=== PATIENT | male | born 1960 | race Caucasian/White ===

== ENCOUNTER 2017-12-27 08:19 | Observation (INO) | payer MEDICARE, OTHER ==
[2017-12-27 08:28] VITALS: BMI 40.3
[2017-12-27] MEDS ORDERED: Albuterol 0.083% Inhal Sol (2.5 mg/3 mL) UD INH STA (09:17)
[2017-12-27] MEDS ORDERED: Albuterol 0.083% Inhal Sol (2.5 mg/3 mL) UD ONE (09:17)
[2017-12-27 09:48] LABS: BASO % 0.5 % (0.0-2.0); EOS # 0.2 K/uL (0.0-0.7); EOS % 3.1 % (0.0-4.0); HEMOGLOBIN 12.6 g/dL (12.0-18.0); LYMPH # 1.6 K/uL (1.0-4.3); LYMPH % 21.4 % (20.0-40.0); MEAN CORPUSCULAR HEMOGLOBIN 27.5 pg (27.0-31.0); MEAN CORPUSCULAR HGB CONC 33.1 g/dL (33.0-37.0); MEAN PLATELET VOLUME 8.9 fL (7.2-11.7); MONO # 0.7 K/uL (0.0-0.8); MONO % 9.1 % (0.0-10.0); NEUT # 4.9 K/uL (1.8-7.0); NEUT % 65.9 % (50.0-75.0); RBC 4.6 Mil/uL (4.40-5.90); RED CELL DISTRIBUTION WIDTH 15.1 % (11.5-14.5); WHITE BLOOD COUNT 7.4 K/uL (4.8-10.8)
[2017-12-27 10:01] LABS: ALB/GLOB RATIO 1.4 (1.0-2.1); ALBUMIN 3.8 g/dL (3.5-5.0); ALT/SGPT 28 U/L (21-72); AST/SGOT 12 U/L (17-59); BLOOD UREA NITROGEN 17 mg/dL (9-20); CALCIUM 8.9 mg/dl (8.6-10.4); GFR AFRICAN-AMERICAN > 60; GFR NON-AFRICAN AMERICAN > 60
[2017-12-27 10:12] LABS: B-TYPE NATRIURETIC PEPTIDE 140 pg/mL (0-900)
--- NOTE | 2017-12-27 10:23 | RAD ---
Date of service: 12/27/2017 HISTORY: SOB COMPARISON: No prior. TECHNIQUE: Chest PA and lateral FINDINGS: LUNGS: Pulmonary vascular congestion. Left midlung and bibasilar atelectasis. PLEURA: No significant pleural effusion identified. No pneumothorax apparent. CARDIOVASCULAR: Atherosclerotic aortic calcifications. Cardiomediastinal silhouette at the upper limits of normal in size. OSSEOUS STRUCTURES: Degenerative changes. VISUALIZED UPPER ABDOMEN: Normal. OTHER FINDINGS: None. IMPRESSION: No active disease.
--- NOTE | 2017-12-27 11:41 | C.PDOC ---
History Of Present Illness 57 year old male with PMHx of COPD, CHF, questionable DM and HTN presents to the ED for evaluation of progressively worsening SOB with exertion, supine position. Patient reports he needs more pillow to sleep on at night and has also noticed increased bilateral leg swelling. Patient denies fever, chills, CP , palpitations, nausea, vomit, diarrhea, weakness, numbness. Time Seen by Provider: 12/27/17 08:42 Chief Complaint (Nursing): Shortness Of Breath History Per: Patient History/Exam Limitations: no limitations Onset/Duration Of Symptoms: Days Current Symptoms Are (Timing): Still Present Initiating Event: Upper Respiratory Illness Quality: Pressure Exacerbating Factor(s): Exertion, Laying Flat Current Respiratory Medications: See Home Med List Associated Symptoms: Ankle/Leg Swelling Recent travel outside of the [place]: No Additional History Per: Patient Past Medical History Reviewed: Historical Data, Nursing Documentation, Vital Signs Vital Signs: Last Vital Signs Temp 97.8 F 12/27/17 15:55 Pulse 70 12/27/17 17:11 Resp 20 12/27/17 15:55 BP 158/97 H 12/27/17 17:11 Pulse Ox 96 12/27/17 15:55 - Medical History PMH: Asthma, CHF, COPD, Diabetes, HTN, Hyperlipidemia Surgical History: Appendectomy Family History: States: Unknown Family Hx - Social History Hx Alcohol Use: Yes Hx Substance Use: No Review Of Systems Constitutional: Negative for: Fever, Chills Cardiovascular: Negative for: Chest Pain, Palpitations Respiratory: Positive for: Shortness of Breath. Negative for: Cough Gastrointestinal: Negative for: Nausea, Vomiting Musculoskeletal: Positive for: Other (leg swelling) Skin: Negative for: Rash Neurological: Negative for: Weakness, Numbness Physical Exam - Physical Exam Appears: Non-toxic, No Acute Distress, Other (obese male) Skin: Normal Color, Warm, Dry Head: Atraumatic, Normacephalic Eye(s): bilateral: Normal Inspection Oral Mucosa: Moist Neck: Normal ROM, Supple Chest: Symmetrical Cardiovascular: Rhythm Regular Respiratory: No Rales, No Rhonchi, Wheezing (scattered expiratory ), Other ( bibasilar crackles) Gastrointestinal/Abdominal: Soft, No Tenderness, No Guarding, No Rebound, Other (obese) Extremity: Normal ROM, No Tenderness, Capillary Refill (< 2 seconds), Swelling ( 2+ b/l pitting edema) Pulses: Left Dorsalis Pedis: Normal, Right Dorsalis Pedis: Normal Neurological/Psych: Oriented x3, Normal Speech, Normal Cognition Gait: Steady ED Course And Treatment - Laboratory Results Result Diagrams: 12/27/17 09:43 12/27/17 09:43 ECG: Interpreted By Me, Viewed By Me ECG Rhythm: Sinus Rhythm Interpretation Of ECG: Possible left atrial enlargement Rate From EC (BPM) O2 Sat by Pulse Oximetry: 98 (ON RA) Pulse Ox Interpretation: Normal Medical Decision Making Medical Decision Making: Impression: worsening SOB Plan: * EKG * Labs * CXR * Albuterol 2.5 mg INH * Bumex 0.5 mg IVP * UA Discussed patient with Dr. 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 - Scribe Statement The provider has reviewed the documentation as recorded by the Scribe Philip Mason All medical record entries made by the Scribradha were at my direction and personally dictated by me. I have reviewed the chart and agree that the record accurately reflects my personal performance of the history, physical exam, medical decision making, and the department course for this patient. I have also personally directed, reviewed, and agree with the discharge instructions and disposition.
[2017-12-27 11:49] LABS: URINE BILIRUBIN NEGATIVE (NEGATIVE); URINE BLOOD NEGATIVE (NEGATIVE); URINE CLARITY Clear (Clear); URINE COLOR Yellow (YELLOW); URINE GLUCOSE (UA) 1+ mg/dL (Normal); URINE LEUKOCYTE ESTERASE NEG Leu/uL (Negative); URINE PROTEIN NEGATIVE (NEGATIVE); URINE UROBILINOGEN NORMAL mg/dL (0.2-1.0)
[2017-12-27 12:19] VITALS: RESP 20
--- NOTE | 2017-12-27 14:05 | CP.PCM.PN ---
Subjective - Date & Time of Evaluation Date of Evaluation: 12/27/17 Time of Evaluation: 13:59 - Subjective Subjective: PGY2 progress note for Dr Pat's Service Pt seen and examined at bedside. Patient found resting comfortably and speaking in full sentences. Patient states he feels less short of breath since receiving Bumex in the ED. He denies chest pain, palpitations, abd pain, N/V/D/C. Patient is a 57 year old male, with PMHx of COPD, CHF (unknown type), IGT, and HTN, presenting to [facility] ED for dyspnea. Patient reports over the last week his leg swelling has increased, and has become associated with dyspnea with exertion. Patient admits it has become impossible for him to lay flat, and now requires two pillows. Pt also admits it is difficult to walk more than a few steps before becoming SOB. Admits "70lb weight gain" over past six months. Admits he "does not watch diet/fluid intake." Patient reports seeing Dr. Wynn (Field Recorder) in [place]. Used to see Dr. Cobian but has not in several years. Admits last ECHO was two years ago. Patient states he is aware of "high sugars" but denies diagnosis with diabetes. PMHx: as above PSHx: Appendectomy SHx: Smoked 1/2 ppd x 20+ years; Quit 5 years ago; Denies alcohol or illicit drugs; Lives in [place]; Retired Allergies: Lasix (renal colic after Lasix- no rash, anaphylaxis), Penicillin, Epinephrine Fam Hx: Father - heart disease; mother - COPD Home Meds: Lisinopril 20mg PO Daily Coreg 6.25mg PO (Pt states he takes daily) Metformin 500mg PO Daily Advair Spiriva Simvastatin 10mg PO HS Objective - Vital Signs/Intake and Output Vital Signs (last 24 hours): Temp Pulse Resp BP Pulse Ox 99.0 F 70 20 146/90 98 12/27/17 08:28 12/27/17 12:18 12/27/17 12:18 12/27/17 12:18 12/27/17 13:13 - Labs Labs: 12/27/17 09:43 12/27/17 09:43 - Constitutional Appears: Non-toxic, No Acute Distress - Head Exam Head Exam: ATRAUMATIC, NORMAL INSPECTION - Eye Exam Eye Exam: EOMI. absent: Scleral icterus Pupil Exam: PERRL - ENT Exam ENT Exam: Mucous Membranes Moist - Neck Exam Neck Exam: Full ROM Additional comments: JVD difficult to appreciate given pts large body habitus - Respiratory Exam Respiratory Exam: Rales (crackles through mid, lower lungs), Wheezes (mid and lower lungs), NORMAL BREATHING PATTERN. absent: Accessory Muscle Use, Clear to Ausculation Bilateral, Respiratory Distress - Cardiovascular Exam Cardiovascular Exam: REGULAR RHYTHM, +S1, +S2, +S4 - GI/Abdominal Exam GI & Abdominal Exam: Soft, Normal Bowel Sounds. absent: Tenderness Additional comments: Morbid obesity No fluid wave - Extremities Exam Extremities Exam: Pedal Edema (2+ up to knee), Tenderness. absent: Normal Inspection - Back Exam Back Exam: absent: CVA tenderness (L), CVA tenderness (R) - Neurological Exam Neurological Exam: Alert, Awake, Oriented x3 - Psychiatric Exam Psychiatric exam: Normal Affect - Skin Skin Exam: Dry, Normal Color, Warm Assessment and Plan - Assessment and Plan (Free Text) Plan: COPD vs CHF exacerbation Observe on tele Measure weight daily, I&Os, Head of bed @ 45 degrees Patient reports he is "approved for home O2" but has never received delivery CXR (12/27/17): Pulm vascular congestion. Borderline cardiomegaly. Atherosclerotic aortic calcifications. BNP 140 on admission Troponin negative x 1 Duonebs Q4H PRN Solumedrol 40mg IV Once Spiriva 18cmg INH Q24H Bumex 1mg IV BID - Bumex 0.5 mg given once in ED Coreg 3.125mg PO BID Lisinopril 20mg PO Daily f/u ECHO IGT/DM ? Random BG > 200 with symptoms Hypoglycemia protocol Accuchecks ACHS Medium ISS Continue home: Metformin 500mg PO BID Crestor 5mg PO HS Lisinopril 20mg PO Daily f/u A1C, lipid panel HTN Elevated on admission Continue Home medications: Coreg 3.125mg PO BID Lisinopril 20mg PO Daily Bumex 1mg IV Q12H Morbid Obesity Low fat, heart healthy diet Advised weight loss Prophylaxis SCDs C/I due to peripheral edema Lovenox 40mg SC Daily GI not indicated Low fat, Heart Healthy Diet PT/OT Allergy note: Pt reports 'renal colic' type pain after loop diuretics. This is not true allergy, and has tolerated Bumex without difficulty. Trevor Chaney PGY-2 All management per Bi
[2017-12-27] MEDS ORDERED: Albuterol-Ipratrop 3 mg / 0.5 (3 ml) UD INH PRN (14:09)
[2017-12-27] MEDS ORDERED: Glucagon Recombinant 1 mg Inj IM PRN (14:53)
[2017-12-27] MEDS ORDERED: Dextrose 50% SYRINGE Inj (50 ml) IV PRN (14:53)
[2017-12-27] MEDS ORDERED: MethylPREDNISolone 40 mg Vial IVP ONE (16:00)
[2017-12-27] MEDS: (Novolin R) Insulin Human Regular 100 units/ml vial SC SCH ×2 (16:42→21:19)
[2017-12-27] MEDS ORDERED: Tiotropium 18 mcg Cap For Inhalation INH SCH (18:00)
[2017-12-28 00:41] VITALS: TEMP 97.9
[2017-12-28 07:40] VITALS: BP 125/73; O2SAT 94
[2017-12-28] MEDS: (Novolin R) Insulin Human Regular 100 units/ml vial SC SCH ×2 (07:41→07:44)
[2017-12-28 07:59] LABS: BASO % 0.2 % (0.0-2.0); HEMOGLOBIN 13.3 g/dL (12.0-18.0); LYMPH # 1.1 K/uL (1.0-4.3); LYMPH % 10.3 % (20.0-40.0); MEAN CELL VOLUME 82.3 fL (80.0-94.0); MEAN CORPUSCULAR HEMOGLOBIN 27.9 pg (27.0-31.0); MEAN CORPUSCULAR HGB CONC 33.9 g/dL (33.0-37.0); MEAN PLATELET VOLUME 9.1 fL (7.2-11.7); MONO # 0.4 K/uL (0.0-0.8); MONO % 3.9 % (0.0-10.0); NEUT # 9.2 K/uL (1.8-7.0); NEUT % 85.6 % (50.0-75.0); RBC 4.77 Mil/uL (4.40-5.90); RED CELL DISTRIBUTION WIDTH 14.9 % (11.5-14.5); WHITE BLOOD COUNT 10.8 K/uL (4.8-10.8)
[2017-12-28 08:15] LABS: BLOOD UREA NITROGEN 15 mg/dL (9-20); CALCIUM 9.1 mg/dl (8.6-10.4); GFR AFRICAN-AMERICAN > 60; GFR NON-AFRICAN AMERICAN > 60; HDL CHOLESTEROL 35 mg/dL (30-70)
[2017-12-28 08:26] LABS: LDL CHOLESTEROL 130 mg/dL (0-129)
[2017-12-28 08:48] VITALS: PULSE 80
[2017-12-28] MEDS ORDERED: Enoxaparin 40 mg Syringe SC SCH (10:00)
--- NOTE | 2017-12-28 15:50 | CARD ---
APPROVED REPORT Date of service: 12/28/2017 EXAM: Two-dimensional and M-mode echocardiogram with Doppler and color Doppler. Other Information Quality : TDSRhythm : INDICATION Congestive Heart Failure COPD 2D DIMENSIONS IVSd1.4 (0.7-1.1cm)LVDd4.8 (3.9-5.9cm) PWd1.1 (0.7-1.1cm)LVDs2.9 (2.5-4.0cm) FS (%) 38.4 %LVEF (%)68.6 (>50%) M-Mode DIMENSIONS Left Atrium (MM)4.33 (2.5-4.0cm)IVSd1.00 (0.7-1.1cm) Aortic Root3.98 (2.2-3.7cm)LVDd5.19 (4.0-5.6cm) Aortic Cusp Exc.2.57 (1.5-2.0cm)PWd0.95 (0.7-1.1cm) FS (%) 39 %LVDs3.16 (2.0-3.8cm) LVEF (%)69 (>50%) Mitral Valve MV E Mpkhcoyd35.1cm/sMV A Rwjneifv82.4cm/sE/A ratio0.9 TDI E/Lateral E'0.0E/Medial E'0.0 LEFT VENTRICLE The left ventricle is normal size. There is normal left ventricular wall thickness. The left ventricular function is normal. The left ventricular ejection fraction is within the normal range. There is normal LV segmental wall motion. The left ventricular diastolic function is normal. RIGHT VENTRICLE The right ventricle is normal size. The right ventricular systolic function is normal. ATRIA The left atrium is mildly dilated. The right atrium size is normal. AORTIC VALVE The aortic valve is normal in structure. No aortic regurgitation is present. There is no aortic valvular stenosis. MITRAL VALVE The mitral valve is normal in structure. There is no mitral valve regurgitation noted. TRICUSPID VALVE The tricuspid valve is normal in structure. There is no tricuspid valve regurgitation noted. PULMONIC VALVE The pulmonary valve is normal in structure. GREAT VESSELS The aortic root is normal in size. The IVC is normal in size and collapses >50% with inspiration. PERICARDIAL EFFUSION There is no pericardial effusion. <Conclusion> Normal bi-ventricular function. The left atrium is mildly dilated. No valvular abnormality noted. No pericardial effusion.
--- NOTE | 2017-12-28 16:15 | CP.PCM.PN ---
Subjective - Date & Time of Evaluation Date of Evaluation: 12/28/17 Time of Evaluation: 09:50 - Subjective Subjective: PGY2 Medicine Note for Dr. Pat Patient seen and examined at bedside this morning. No acute events overnight. Patient states he has been urinating all night. The swelling in his legs has decreased drastically and he is feeling much better. His breathing is drastically improved and he has no complaints at this time. 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 ROS negative. Objective - Vital Signs/Intake and Output Vital Signs (last 24 hours): Temp Pulse Resp BP Pulse Ox 97.9 F 80 20 125/73 94 L 12/28/17 07:39 12/28/17 08:00 12/28/17 07:39 12/28/17 07:39 12/28/17 07:39 Intake and Output: 12/28/17 12/28/17 06:59 18:59 Intake Total 330 Output Total 2080 Balance -1750 - Labs Labs: 12/28/17 07:47 12/28/17 07:47 - Constitutional Appears: Non-toxic, No Acute Distress, Other (obese) - Head Exam Head Exam: ATRAUMATIC, NORMOCEPHALIC - Eye Exam Eye Exam: Normal appearance - ENT Exam ENT Exam: Mucous Membranes Moist - Neck Exam Neck Exam: absent: Lymphadenopathy - Respiratory Exam Respiratory Exam: Clear to Ausculation Bilateral, Respiratory Distress, NORMAL BREATHING PATTERN. absent: Accessory Muscle Use, Prolonged Expiratory Phase, Rales, Rhonchi, Wheezes - Cardiovascular Exam Cardiovascular Exam: REGULAR RHYTHM, +S1, +S2 - GI/Abdominal Exam GI & Abdominal Exam: Soft, Normal Bowel Sounds. absent: Distended, Firm, Guarding, Rigid - Extremities Exam Extremities Exam: Pedal Edema (pitting edema 2+ b/l). absent: Calf Tenderness - Neurological Exam Neurological Exam: Alert, Awake, CN II-XII Intact, Oriented x3 - Psychiatric Exam Psychiatric exam: Normal Affect, Normal Mood - Skin Skin Exam: Dry, Warm Assessment and Plan - Assessment and Plan (Free Text) Plan: COPD vs CHF exacerbation Observation on tele Measure weight daily, I&Os, Head of bed @ 45 degrees Patient reports he is "approved for home O2" but has never received delivery CXR (12/27/17): Pulm vascular congestion. Borderline cardiomegaly. Atherosclerotic aortic calcifications. BNP 140 on admission Troponin negative x 1 Duonebs Q4H PRN Solumedrol 40mg IV Once Spiriva 18cmg INH Q24H Bumex 1mg IV BID Coreg 3.125mg PO BID Lisinopril 20mg PO Daily ECHO: official report pending Diabetes Random BG > 200 with symptoms Hypoglycemia protocol Accuchecks ACHS Medium ISS Continue home: Metformin 500mg PO BID Crestor 5mg PO HS Lisinopril 20mg PO Daily Hgb A1C 7.8 lipid panel: HDL 35 L, LDL 130 H, Trigly 167 HTN Elevated on admission Continue Home medications: Coreg 3.125mg PO BID Lisinopril 20mg PO Daily Bumex 1mg IV Q12H Morbid Obesity Low fat, heart healthy diet Advised weight loss Prophylaxis SCDs C/I due to peripheral edema Lovenox 40mg SC Daily GI not indicated Low fat, Heart Healthy Diet PT/OT Allergy note: Pt reports 'renal colic' type pain after loop diuretics. This is not true allergy, and has tolerated Bumex without difficulty. DISPO: patient discharged on 12/28 with the following instructions. Patient is to be discharged home per Dr. Pat. Patient is to follow up with his primary care physician within one week. Patient is to take his medications as directed. Patient instructed that he needs to lose weight and watch his diet due to worsening diabetes. Patient states he understands and agrees. If patient experiences any new or worsening symptoms, please go directly to the nearest emergency department. All medical management per Dr. Pat
--- NOTE | 2017-12-28 21:32 | CARD ---
APPROVED REPORT Date of service: 12/27/2017 EKG Measurement Heart [id number] <Conclusion> Normal sinus rhythm Normal Electrocardiogram
== END 2017-12-28 12:16 | disposition home or self-care (01) ==
LOC: C.ER 08:19 → C.9E 12:04 → C.5S 13:15
PROVIDERS: ADMIT Internal Medicine Pulmonary Disease; ATTEND Internal Medicine Pulmonary Disease
DX: I11.0 Hypertensive heart disease with heart failure (principal); I50.9 Heart failure, unspecified; J44.9 Chronic obstructive pulmonary disease, unspecified; Z79.84 Long term (current) use of oral hypoglycemic drugs; E11.9 Type 2 diabetes mellitus without complications; E78.5 Hyperlipidemia, unspecified; R73.02 Impaired glucose tolerance (oral)
CPT/HCPCS: 36415; 71046; 80048; 80053; 80061; 81001; 82948; 83036; 83735; 83880; 84100; 84439; 84443; 84484; 85025; 93005; 93306; 94640; 96374; 97165; 97535; 99285; G0378; G8987; G8988; G8989; J1650; J2920